=== PATIENT | female | born 1980 | race Caucasian/White ===

== ENCOUNTER 2020-01-15 10:23 | Emergency (ER) | payer BC, OTHER, SELFPAY ==
[~2020-01-15] VITALS: Ht 160 cm; Wt 61.3 kg
[2020-01-15] MEDS ORDERED: PLEASE ENTER HEIGHT MC SCH (11:00)
[2020-01-15] MEDS ORDERED: ASPIRIN 81 MG TABLET CHEW PO ONE (11:00)
[2020-01-15] MEDS ORDERED: KETOROLAC 30 MG/1 ML ONE (11:30)
[2020-01-15] MEDS ORDERED: KETOROLAC 30 MG/1 ML IVPush ONE (11:30)
[2020-01-15] MEDS ORDERED: ASPIRIN 81 MG TABLET EC ONE (11:45)
[2020-01-15] MEDS ORDERED: ASPIRIN 81 MG TABLET CHEW ONE (11:47)
[2020-01-15 12:07] LABS: MEAN CORPUSCULAR HEMOGLOBIN 30.8 pg (27.0-34.8); MEAN CORPUSCULAR HGB CONC 34.7 g/dL (32.4-35.8); MEAN CORPUSCULAR VOLUME 88.9 fL (80-100); MEAN PLATELET VOLUME 7.9 fL (7.4-10.4); PLATELET COUNT 272 x10^3/uL (130-400); RED BLOOD COUNT 4.48 x10^6/uL (3.82-5.3)
[2020-01-15 12:09] LABS: ALBUMIN 4.6 g/dL (3.4-5.0); ANION GAP 7 mmol/L (5-15); CALCIUM 8.7 mg/dL (8.5-10.1); CHLORIDE 107 mmol/L (98-107); CREATININE 0.65 mg/dL (0.55-1.02)
[2020-01-15 12:13] LABS: ALANINE AMINOTRANSFERASE 36 U/L (12-78); ALKALINE PHOSPHATASE 61 U/L (45-117); BILIRUBIN,TOTAL 0.8 mg/dL (0.2-1.0); TOTAL PROTEIN 8.2 g/dL (6.4-8.2); TROPONIN I < 0.015 ng/mL (0.000-0.045)
[2020-01-15 12:29] LABS: BASOPHILS # (AUTO) 0.03 x10^3/uL (0-0.1); BASOPHILS % (AUTO) 1 % (0-1); EOSINOPHILS # (AUTO) 0.05 x10^3/uL (0-0.4); EOSINOPHILS % (AUTO) 1 % (1-7); LYMPHOCYTES % (AUTO) 35 % (22-44); MD SCAN; MONOCYTES # (AUTO) 0.49 x10^3/uL (0.2-0.8); MONOCYTES % (AUTO) 11 % (2-9); NEUTROPHILS # (AUTO) 2.47 x10^3/uL (1.8-6.8); NEUTROPHILS % (AUTO) 53 % (42-75)
--- NOTE | 2020-01-15 12:46 | NUR ---
Patient is resting comfortably in bed, provider at bedside, no further needs at this time.
[2020-01-15 14:48] VITALS: BP 113/69
--- NOTE | 2020-01-15 15:00 | NUR ---
Patient given discharge instructions and they have confirmed that they understand the instructions. IV REMOVED WITH TIP INTACT, ALL PATIENT BELONGINGS GATHERED BY PATIENT. Patient ambulatory with steady gait, WALKED TO DISCHARGE DESK.
== END 2020-01-15 15:03 | disposition home or self-care (01) ==
LOC: ED 12:51
DX: R07.89 Other chest pain (principal); R06.02 Shortness of breath; R47.81 Slurred speech
CPT/HCPCS: 36415; 71045; 80053; 84484; 85025; 85379; 93005; 96374; 99285; J1885; 96372

== ENCOUNTER → 2020-02-12 | Outpatient (CLI) | payer OTHER | END | disposition home or self-care (01) | LOC: CFH 14:55 | PROVIDERS: ATTEND Family Medicine | DX: Z12.31 Encounter for screening mammogram for malignant neoplasm of breast (principal); R42 Dizziness and giddiness; R47.89 Other speech disturbances; N63.41 Unspecified lump in right breast, subareolar; F48.8 Other specified nonpsychotic mental disorders | CPT/HCPCS: 70551; 77067 ==

== ENCOUNTER → 2020-02-25 | Outpatient (CLI) | payer OTHER | END | disposition home or self-care (01) | LOC: CFH 07:22 | PROVIDERS: ATTEND Family Medicine | DX: R92.2 Inconclusive mammogram (principal); N63.10 Unspecified lump in the right breast, unspecified quadrant | CPT/HCPCS: 76642; 77065; G0279 ==

== ENCOUNTER → 2020-09-28 | Outpatient (CLI) | payer OTHER | END | disposition home or self-care (01) | LOC: CFH 08:33 | PROVIDERS: ATTEND Family Medicine | DX: N63.12 Unspecified lump in the right breast, upper inner quadrant (principal); R92.2 Inconclusive mammogram | CPT/HCPCS: 76642; 77061; 77065; G0279 ==